=== PATIENT | male | born 1950 | race Caucasian/White ===

== ENCOUNTER 2020-02-16 13:25 | Inpatient (IN) ==
[2020-02-16] MEDS ORDERED: SODIUM CHLORIDE 0.9% 1,000 ML IV STA (14:30)
[2020-02-16] MEDS ORDERED: propofoL 200 MG/20 ML VIAL IV ONE (14:42)
[2020-02-16 15:01] LABS: Basophils # 0.1 10*3/uL (0.0-0.2); Basophils % 0.4 % (0.0-0.8); Eosinophils # 0.1 10*3/uL (0.0-0.87); Eosinophils % 0.4 % (0.00-10.9); Hemoglobin 13.9 GM/DL (14.0-18.0); Immature Granulocytes % 0.6 %; Immature Granulocytes Absolute 0.08 #; Lymphocytes % 7.4 % (21.2-54.2); Mean Corpuscular HGB Conc 34.8 GM/DL (32-36); Mean Corpuscular Volume 88.7 FL (87-102); Mean Platelet Volume 10.5 FL (9.6-12.0); Monocytes % 4.8 % (1.7-12.7); Neutrophils % 86.4 % (38.7-73.9); Platelet Count 178 T/CUMM (130-400); Red Blood Count 4.51 MC/CUMM (3.8-5.5); Red Cell Distribution Width 12.1 % (9.3-17.3); White Blood Count 13.3 T/CUMM (4-12)
[2020-02-16 15:17] LABS: Calcium 9.7 MG/DL (8.5-10.1); Osmolality,Calculated 280.5 MOS/KG (273-304)
[2020-02-16 15:22] LABS: Albumin 4.1 G/DL (3.4-5.0); Bilirubin,Direct 0.19 MG/DL (0.0-0.20); Bilirubin,Indirect 0.4 MG/DL (0.0-1.0); Bilirubin,Total 0.6 MG/DL (0.2-1.0); Total Protein 7.3 G/DL (6.4-8.3)
[2020-02-16] MEDS ORDERED: HYDROmorphone PCA 30 MG/30 ML SYRINGE IV SCH (16:16)
[2020-02-16] MEDS ORDERED: NALOXONE 0.4 MG/ML VIAL IV PRN (16:16)
[2020-02-16] MEDS: KETOROLAC 30 MG/1 ML VIAL IV SCH ×2 (17:03→21:41)
[2020-02-16] MEDS: LACTATED RINGERS 1,000 ML IV SCH (17:40)
[2020-02-16] MEDS: GABAPENTIN 100 MG CAPSULE PO SCH (21:15)
[2020-02-17] MEDS: LACTATED RINGERS 1,000 ML IV SCH (03:19)
[2020-02-17] MEDS: KETOROLAC 30 MG/1 ML VIAL IV SCH ×4 (03:19→21:12)
[2020-02-17 06:15] LABS: Basophils % 0.2 % (0.0-0.8); Eosinophils % 0.5 % (0.00-10.9); Hematocrit 34.9 VOL% (42.0-52.0); Immature Granulocytes % 0.5 %; Immature Granulocytes Absolute 0.04 #; Lymphocytes # 1.3 10*3/uL (1.4-4.0); Lymphocytes % 14.4 % (21.2-54.2); Mean Corpuscular HGB Conc 34.4 GM/DL (32-36); Mean Corpuscular Volume 89.7 FL (87-102); Mean Platelet Volume 10.9 FL (9.6-12.0); Monocytes % 8.6 % (1.7-12.7); Neutrophils % 75.8 % (38.7-73.9); Platelet Count 142 T/CUMM (130-400); Red Blood Count 3.89 MC/CUMM (3.8-5.5); Red Cell Distribution Width 12.4 % (9.3-17.3); White Blood Count 8.9 T/CUMM (4-12)
[2020-02-17 06:33] LABS: Albumin 3.1 G/DL (3.4-5.0); Bilirubin,Total 1.1 MG/DL (0.2-1.0); Osmolality,Calculated 278.5 MOS/KG (273-304); Total Protein 6.3 G/DL (6.4-8.3)
[2020-02-17] MEDS ORDERED: HYDROmorphone 2 MG/1 ML VIAL IV PRN (07:34)
[2020-02-17] MEDS ORDERED: FEXOFENADINE PSEUDOEPHEDRINE PO SCH (09:00)
[2020-02-17] MEDS: GABAPENTIN 100 MG CAPSULE PO SCH ×3 (09:23→21:11)
[2020-02-17] MEDS: ENOXAPARIN 40 MG/0.4 ML SYRINGE SUBCUT SCH (09:25)
[2020-02-18] MEDS: KETOROLAC 30 MG/1 ML VIAL IV SCH ×4 (06:12→21:23)
[2020-02-18] MEDS: PSEUDOEPHEDRINE 30 MG TABLET PO SCH ×3 (09:40→21:32)
[2020-02-18] MEDS: ENOXAPARIN 40 MG/0.4 ML SYRINGE SUBCUT SCH (09:40)
[2020-02-18] MEDS: GABAPENTIN 100 MG CAPSULE PO SCH ×3 (09:41→21:32)
[2020-02-18] MEDS: FEXOFENADINE 180 MG TABLET PO SCH (09:41)
[2020-02-19] MEDS: PSEUDOEPHEDRINE 30 MG TABLET PO SCH ×4 (01:48→20:24)
[2020-02-19] MEDS: KETOROLAC 30 MG/1 ML VIAL IV SCH ×4 (04:07→21:30)
[2020-02-19] MEDS: ENOXAPARIN 40 MG/0.4 ML SYRINGE SUBCUT SCH (11:12)
[2020-02-19] MEDS: FEXOFENADINE 180 MG TABLET PO SCH (11:13)
[2020-02-19] MEDS: GABAPENTIN 100 MG CAPSULE PO SCH ×3 (11:28→20:24)
[2020-02-19] MEDS: POLYETHYLENE GLYCOL POWDER 17 GM PACK PO SCH (14:36)
[2020-02-19] MEDS: TAMSULOSIN 0.4 MG CAPSULE PO SCH (14:36)
[2020-02-20] MEDS: PSEUDOEPHEDRINE 30 MG TABLET PO SCH ×4 (02:39→20:36)
[2020-02-20] MEDS: KETOROLAC 30 MG/1 ML VIAL IV SCH ×5 (03:55→22:51)
[2020-02-20] MEDS ORDERED: POLYETHYLENE GLYCOL POWDER 17 GM PACK PO SCH (09:00)
[2020-02-20] MEDS: FEXOFENADINE 180 MG TABLET PO SCH (09:33)
[2020-02-20] MEDS: TAMSULOSIN 0.4 MG CAPSULE PO SCH (09:34)
[2020-02-20] MEDS: GABAPENTIN 100 MG CAPSULE PO SCH ×3 (09:34→20:36)
[2020-02-20] MEDS: POLYETHYLENE GLYCOL POWDER 17 GM PACK PO SCH (09:36)
[2020-02-20] MEDS: ENOXAPARIN 40 MG/0.4 ML SYRINGE SUBCUT SCH (09:45)
[2020-02-21] MEDS: KETOROLAC 30 MG/1 ML VIAL IV SCH ×2 (03:07→10:04)
[2020-02-21] MEDS: PSEUDOEPHEDRINE 30 MG TABLET PO SCH ×3 (03:07→14:18)
[2020-02-21] MEDS: TAMSULOSIN 0.4 MG CAPSULE PO SCH (08:51)
[2020-02-21] MEDS: FEXOFENADINE 180 MG TABLET PO SCH (08:51)
[2020-02-21] MEDS: GABAPENTIN 100 MG CAPSULE PO SCH ×2 (08:51→14:18)
[2020-02-21] MEDS: ENOXAPARIN 40 MG/0.4 ML SYRINGE SUBCUT SCH (08:52)
[2020-02-21] MEDS: POLYETHYLENE GLYCOL POWDER 17 GM PACK PO SCH (08:52)
[2020-02-21] MEDS ORDERED: INFLUENZA VIRUS VACCINE 0.5 ML SYRINGE IM ONE (09:22)
[2020-02-21 11:35] VITALS: BP 109/58
== END 2020-02-21 16:05 | disposition home or self-care (01) | DRG 200 ==
LOC: N.ED 13:25 → N.EDINP 15:22 → N.3E 17:14
PROVIDERS: ADMIT Surgery; ATTEND Surgery